=== PATIENT | female | born 1995 | race Two or more races ===

== ENCOUNTER 2022-06-18 09:29 | Emergency (ER) | payer OTHER ==
[2022-06-18 09:41] VITALS: TEMP 98.6; BMI 23.9
[2022-06-18] MEDS ORDERED: IBUPROFEN 600 MG TABLET (FP) PO ONE ×2 (11:35→11:39)
[2022-06-18 13:12] VITALS: BP 116/74; PULSE 88; RESP 18
== END 2022-06-18 13:27 | disposition home or self-care (01) ==
LOC: JERFT 09:29 → JER 09:29 → JERFT 13:27
DX: M54.50 Low back pain, unspecified (principal); G44.89 Other headache syndrome; Y04.8XXA Assault by other bodily force, initial encounter; Y07.03 Male partner, perpetrator of maltreatment and neglect
CPT/HCPCS: 70450-TC; 71046-TC-FY; 84703; 93005; 93010; 99285-25